=== PATIENT | male | born 1970 | race Two or more races ===

== ENCOUNTER 2022-12-20 09:33 | Emergency (ER) | payer MEDICAID ==
[~2022-12-20] VITALS: Ht 154.9 cm; Wt 66.7 kg
[2022-12-20 09:59] VITALS: BP 129/71; PULSE 53; RESP 17; TEMP 98.1; O2SAT 98
== END 2022-12-20 10:58 | disposition home or self-care (01) ==
LOC: ER 09:33
DX: S62.501A Fracture of unspecified phalanx of right thumb, initial encounter for closed fracture (principal); X50.1XXA Overexertion from prolonged static or awkward postures, initial encounter; Y93.89 Activity, other specified; Y92.89 Other specified places as the place of occurrence of the external cause; Y99.8 Other external cause status
CPT/HCPCS: 29130; 73130